=== PATIENT | male | born 1995 | race Hispanic/Latino ===

== ENCOUNTER 2020-01-21 | Emergency (ER) | payer SELFPAY | END 2020-01-21 20:40 | disposition home or self-care (01) | DRG 125 | PROC: 0HQ1XZZ Repair Face Skin, External Approach (ICD-10-PCS; principal; 2020-01-21) | DX: S01.112A Laceration without foreign body of left eyelid and periocular area, initial encounter (principal); W19.XXXA Unspecified fall, initial encounter; Y92.009 Unspecified place in unspecified non-institutional (private) residence as the place of occurrence of the external cause ==

== ENCOUNTER 2022-10-08 20:38 | Emergency (ER) | payer SELFPAY ==
[~2022-10-08] VITALS: Ht 180.3 cm; Wt 68.1 kg
[2022-10-08 21:37] VITALS: BP 107/73
[2022-10-08 22:00] VITALS: BP 103/65
[2022-10-08 22:31] VITALS: BP 106/48
[2022-10-08 23:00] VITALS: BP 96/53
[2022-10-08 23:30] VITALS: BP 97/55
[2022-10-09 00:30] VITALS: BP 97/55
== END 2022-10-09 00:40 | disposition home or self-care (01) | DRG 563 ==
LOC: ED 20:38
PROC: 2W3RX1Z Immobilization of Left Lower Leg using Splint (ICD-10-PCS; principal; 2022-10-08)
DX: S82.62XA Displaced fracture of lateral malleolus of left fibula, initial encounter for closed fracture (principal); W10.9XXA Fall (on) (from) unspecified stairs and steps, initial encounter; Y92.009 Unspecified place in unspecified non-institutional (private) residence as the place of occurrence of the external cause

== ENCOUNTER 2024-07-12 22:54 | Emergency (ER) | payer SELFPAY ==
[~2024-07-12] VITALS: Ht 180.3 cm; Wt 60.0 kg
[2024-07-12] MEDS ORDERED: IBUPROFEN 800 MG/TAB PO ONE (23:30)
[2024-07-12] MEDS ORDERED: ONDANSETRON 4 MG/TAB ODT PO ONE (23:45)
[2024-07-13 01:24] VITALS: BP 126/78
== END 2024-07-13 01:24 | disposition home or self-care (01) | DRG 866 ==
LOC: ED 22:54
DX: B34.9 Viral infection, unspecified (principal); Z20.822 Contact with and (suspected) exposure to COVID-19